=== PATIENT | female | born 1975 | race American Indian/Alaskan Native ===

== ENCOUNTER 2016-12-02 17:56 | Emergency (ER) | payer MEDICAID ==
[2016-12-02 18:01] VITALS: BMI 22.3
[2016-12-02] MEDS ORDERED: Multivitamin (MVI) 10 ML, Thiamine 100 MG, Folic Acid 1 MG in Sodium Chloride 0.9% 1,00... IV STA (19:42)
--- NOTE | 2016-12-02 19:44 | C.PDOC ---
History Of Present Illness 41 year old female is brought to the ED by EMS after stating she was hearing voices. Patient states she is hearing voices that tell her "to do bad things, like kill myself", this is the first time she is hearing these kind of voices. She is uncooperative for questioning, needs to be aroused verbally and physically in order to answer. Patient states having heart failure but has never seen a lotus notes administrator before for her issue. She denies any other medical problems, drug use, ETOH use. Chief Complaint (Nursing): Psychiatric Evaluation History Per: Patient, EMS History/Exam Limitations: other (somnolent) Current Symptoms Are (Timing): Still Present Suicide/Self Injury Attempted (Context): None Modifying Factor(s): None Associated Symptoms: Suicidal Thoughts, Other (auditory hallucinations) Recent travel outside of the [place]: No Additional History Per: EMS Past Medical History Reviewed: Historical Data, Nursing Documentation, Vital Signs Vital Signs: Last Vital Signs Temp 98 F 12/03/16 06:47 Pulse 80 12/03/16 06:47 Resp 20 12/03/16 06:47 BP 132/80 12/03/16 06:47 Pulse Ox 97 12/03/16 06:47 - Medical History PMH: Asthma Surgical History: No Surg Hx Family History: States: Unknown Family Hx - Social History Hx Alcohol Use: No Hx Substance Use: Yes Review Of Systems Constitutional: Positive for: Other (bad hygiene). Negative for: Fever, Chills Cardiovascular: Negative for: Chest Pain, Light Headedness Respiratory: Negative for: Cough Gastrointestinal: Negative for: Nausea, Vomiting Neurological: Negative for: Weakness, Numbness Psych: Positive for: Suicidal ideation Physical Exam - Physical Exam Appears: Other (Somnolent, overall poor hygiene, slurred speech) Skin: Normal Color, Warm, Dry, No Ecchymosis Head: No Atraumatic, Normacephalic Eye(s): bilateral: Other (Cloudy sclera) Nose: Normal, No Discharge Neck: Normal, Supple Chest: Symmetrical, No Deformity, No Tenderness Cardiovascular: Rhythm Regular, No Friction Rub, No Murmur Respiratory: Normal Breath Sounds, No Rales, No Rhonchi, No Wheezing Gastrointestinal/Abdominal: Normal Exam, Soft, No Tenderness Back: Normal Inspection Extremity: Normal ROM, Capillary Refill (less than 2 seconds), No Deformity Pulses: Left Radial: Normal, Right Radial: Normal, Left Dorsalis Pedis: Normal, Right Dorsalis Pedis: Normal Neurological/Psych: No Oriented x3 (Oriented to place, person,) Disoriented To: Place ED Course And Treatment - Laboratory Results Result Diagrams: 12/02/16 21:03 12/02/16 21:03 ECG: Interpreted By Me ECG Rhythm: Sinus Rhythm, Nonspecific Changes ECG Interpretation: Normal Interpretation Of ECG: nsr at 83 BPM,no acute STTW changes,no ectopy. Rate From EC O2 Sat by Pulse Oximetry: 100 (On RA) Pulse Ox Interpretation: Normal Medical Decision Making Medical Decision Making: Impression: 41 y/o female brought by EMS after stating she is hearing voices. Plan: * EKG ordered * UA ordered * Blood work Ordered * IV fluids administered Patient having auditory hallucinations. Medically cleared needs to be seen by crisis. Disposition - Disposition Referrals: [facility] [Outside] Disposition: HOME/ ROUTINE Disposition Time: 06:41 Condition: FAIR Instructions: Medical Clearance for Psychiatric Care (ED) Forms: [employer] (Russian) - Clinical Impression Clinical Impression: Cocaine abuse - Scribe Statement The provider has reviewed the documentation as recorded by the Scribe Francisco Javier Justice All medical record entries made by the Scribe were at my direction and personally dictated by me. I have reviewed the chart and agree that the record accurately reflects my personal performance of the history, physical exam, medical decision making, and the department course for this patient. I have also personally directed, reviewed, and agree with the discharge instructions and disposition.
[2016-12-02 20:15] LABS: RBC URINE 4 /hpf (0-3); URINE BACTERIA OCC (<OCC); URINE BILIRUBIN NEGATIVE (NEGATIVE); URINE BLOOD 1+ (NEGATIVE); URINE COLOR Yellow (YELLOW); URINE GLUCOSE (UA) NORMAL (Normal); URINE KETONE NEGATIVE (NEGATIVE); URINE LEUKOCYTE ESTERASE 1+ Leu/uL (Negative); URINE PROTEIN NEGATIVE (NEGATIVE); WBC URINE 8 /hpf (0-5)
[2016-12-02] MEDS ORDERED: Multivitamin (MVI) 10 ML, Thiamine 100 MG, Folic Acid 1 MG in Dextrose 5% In Water 1,00... IV STA (20:41)
[2016-12-02] MEDS ORDERED: Multivitamin (MVI) 10 ML, Thiamine 100 MG, Folic Acid 1 MG in Sodium Chloride 0.9% 1,00... IV ONE (21:13)
[2016-12-02 21:17] LABS: BASO % 0.7 % (0.0-2.0); EOS # 0.2 K/uL (0.0-0.7); EOS % 3.6 % (0.0-4.0); HEMATOCRIT 28.5 % (34.0-47.0); LYMPH # 2.3 K/uL (1.0-4.3); LYMPH % 38.2 % (20.0-40.0); MEAN CELL VOLUME 72.8 fL (81.0-99.0); MEAN CORPUSCULAR HEMOGLOBIN 22.7 pg (27.0-31.0); MEAN CORPUSCULAR HGB CONC 31.1 g/dL (33.0-37.0); MEAN PLATELET VOLUME 8.2 fL (7.2-11.7); MONO # 0.5 K/uL (0.0-0.8); MONO % 8.7 % (0.0-10.0); NRBC % 0.1 % (0.0-2.0); RED CELL DISTRIBUTION WIDTH 18.6 % (11.5-14.5); WHITE BLOOD COUNT 5.9 K/uL (4.8-10.8)
[2016-12-02 21:25] LABS: CHLORIDE 102 mmol/L (98-107); POTASSIUM 4.3 mmol/L (3.6-5.2); SODIUM 134 mmol/L (132-148)
[2016-12-02 21:27] LABS: GFR AFRICAN-AMERICAN > 60
[2016-12-02 21:28] LABS: ALB/GLOB RATIO 1.3 (1.0-2.1); ALKALINE PHOSPHATASE 95 U/L (38-126); ALT/SGPT 64 U/L (9-52); AST/SGOT 33 U/L (14-36); BILIRUBIN,TOTAL 0.3 mg/dL (0.2-1.3); BLOOD UREA NITROGEN 11 mg/dL (7-17); CALCIUM 8.3 mg/dl (8.6-10.4); CARBON DIOXIDE 25 mmol/L (22-30); GLUCOSE,RANDOM 81 mg/dL (65-105)
[2016-12-02 21:29] LABS: ALCOHOL SERUM < 10 mg/dl (0-10)
[2016-12-03 06:48] VITALS: BP 132/80; PULSE 80; RESP 20; TEMP 98
[2016-12-03 07:16] VITALS: O2SAT 100
== END 2016-12-03 06:47 | disposition home or self-care (01) ==
LOC: C.ER 17:56
DX: F14.10 Cocaine abuse, uncomplicated (principal)
CPT/HCPCS: 80053; 80320; 80324; 80329; 80345; 80346; 80349; 80353; 80358; 80361; 81001; 83992; 84703; 85025; 96374; 99284; J3411; J7040

== ENCOUNTER 2016-12-03 10:54 | Inpatient (IN) | payer MEDICAID ==
[2016-12-03 10:55] VITALS: BMI 22.3
[2016-12-03 12:03] LABS: BASO % 0.3 % (0.0-2.0); EOS # 0.1 K/uL (0.0-0.7); LYMPH # 1.5 K/uL (1.0-4.3); MEAN CORPUSCULAR HEMOGLOBIN 22.9 pg (27.0-31.0); MEAN CORPUSCULAR HGB CONC 31.4 g/dL (33.0-37.0); MEAN PLATELET VOLUME 8.3 fL (7.2-11.7); MONO # 0.5 K/uL (0.0-0.8); NRBC % 0.1 % (0.0-2.0); RED CELL DISTRIBUTION WIDTH 18.6 % (11.5-14.5); WHITE BLOOD COUNT 6.8 K/uL (4.8-10.8)
[2016-12-03 12:15] LABS: CHLORIDE 103 mmol/L (98-107); RBC URINE < 1 /hpf (0-3); URINE BILIRUBIN NEGATIVE (NEGATIVE); URINE BLOOD NEGATIVE (NEGATIVE); URINE COLOR Yellow (YELLOW); URINE GLUCOSE (UA) NORMAL (Normal); URINE KETONE NEGATIVE (NEGATIVE); URINE LEUKOCYTE ESTERASE NEG Leu/uL (Negative); URINE PROTEIN NEGATIVE (NEGATIVE); WBC URINE 2 /hpf (0-5)
[2016-12-03 12:16] LABS: POTASSIUM 3.9 mmol/L (3.6-5.2); SODIUM 139 mmol/L (132-148)
[2016-12-03 12:19] LABS: ALKALINE PHOSPHATASE 86 U/L (38-126); ALT/SGPT 69 U/L (9-52); AST/SGOT 33 U/L (14-36); BILIRUBIN,TOTAL 0.4 mg/dL (0.2-1.3); BLOOD UREA NITROGEN 12 mg/dL (7-17); CARBON DIOXIDE 27 mmol/L (22-30); GFR AFRICAN-AMERICAN > 60; GLUCOSE,RANDOM 67 mg/dL (65-105); TOTAL PROTEIN 7.6 g/dL (6.3-8.3)
[2016-12-03 12:20] LABS: ALCOHOL SERUM < 10 mg/dl (0-10); CALCIUM 8.9 mg/dl (8.6-10.4)
--- NOTE | 2016-12-03 13:45 | C.PDOC ---
History Of Present Illness 41 year old female brought to ED by EMS for psychiatric evaluation. As per EMS, patient has past medical history of bipolar disorder and schizophrenia. Patient was seen overnight for similar reason, and was discharged home. Records reviewed, does not appear to have been evaluated by crisis. Patient is not answering any questions at this time. Time Seen by Provider: 12/03/16 11:10 Chief Complaint (Nursing): Psychiatric Evaluation History Per: EMS History/Exam Limitations: other (refusing to answer questions) Onset/Duration Of Symptoms: Gradual Current Symptoms Are (Timing): Still Present Suicide/Self Injury Attempted (Context): None Additional History Per: EMS Past Medical History Reviewed: Historical Data, Nursing Documentation, Vital Signs Vital Signs: Last Vital Signs Temp 97.8 F 12/04/16 07:52 Pulse 95 H 12/04/16 07:52 Resp 20 12/04/16 07:52 BP 129/72 12/04/16 07:52 Pulse Ox 100 12/05/16 01:06 - Medical History PMH: Asthma, Bipolar Disorder, Schizophrenia Family History: States: No Known Family Hx - Social History Hx Alcohol Use: No Hx Substance Use: Yes - Immunization History Hx Tetanus Toxoid Vaccination: No Hx Influenza Vaccination: No Hx Pneumococcal Vaccination: No Review Of Systems Review Of Systems: ROS cannot be obtained secondary to pt's inabilty to answer questions. (Pt not answering any questions at this time) Physical Exam - Physical Exam Appears: Non-toxic, No Acute Distress, Other (bizarre affect) Skin: Normal Color, Warm, Dry Head: Atraumatic, Normacephalic Eye(s): bilateral: Normal Inspection Oral Mucosa: Moist Cardiovascular: Rhythm Regular, No Murmur Respiratory: Normal Breath Sounds, No Rales, No Rhonchi, No Wheezing Gastrointestinal/Abdominal: Normal Exam, Bowel Sounds, Soft, No Tenderness Extremity: Normal ROM Extremity: Bilateral: Atraumatic, Normal Color And Temperature, Normal ROM Neurological/Psych: Oriented x3 Gait: Steady ED Course And Treatment - Laboratory Results Result Diagrams: 12/03/16 11:57 12/03/16 11:57 O2 Sat by Pulse Oximetry: 100 (RA) Pulse Ox Interpretation: Normal Progress Note: Blood work, UA, UDS ordered and reviewed. 3:00pm- Patient medically cleared. 3:15pm- Patient accepted by Dr. Begum for psychiatric admission. Disposition - Disposition Disposition: HOSPITALIZED Disposition Time: 15:19 Condition: STABLE - Clinical Impression Clinical Impression: Schizophrenia - Scribe Statement The provider has reviewed the documentation as recorded by the Scribe Max Sanchez All medical record entries made by the Scribe were at my direction and personally dictated by me. I have reviewed the chart and agree that the record accurately reflects my personal performance of the history, physical exam, medical decision making, and the department course for this patient. I have also personally directed, reviewed, and agree with the discharge instructions and disposition. Decision To Admit - Pt Status Changed To: Hospital Disposition Of: Inpatient - Admit Certification Admit to Inpatient:: After my assessment, the patient will require hospitalization for at least two midnights. This is because of the severity of symptoms shown, intensity of services needed, and/or the medical risk in this patient being treated as an outpatient. - InPatient: Physician Admission Certification: I certify that this patient requires 2 or more midnights of care for the following reason:: see notes - . Bed Request Type: Psychiatry Admitting Physician: Reina Begum Patient Diagnosis: Schizophrenia
--- NOTE | 2016-12-04 04:07 | PCM.BM ---
<Ronak Grajeda - Last Filed: 12/04/16 04:06> Treatment Plan Problems - Problems identified on initial assessmt Auditory Hallucination Date Initiated: 12/03/16 Time Initiated: 16:15 Assessment reference: NA Status: Active Treatment assets and liabiliti Patient Assests: ADL independent, physically healthy Patient Liabilities: poor support system, relationship conflicts, substance abuse (Crack cocaine) - Milieu Protocol Maintain good personal hygiene: daily Encourage regular showers, daily Remind patient to perform daily oral care Conduct patient checks and document Observation sheet: Q15 minutes Maintain personal safety: every shift Educate patient to report safety concerns to staff, every shift Monitor environment for contraband/sharps Medication safety: Monitor for expected outcome, potential side effects: every shift, Assess barriers to learning: every shift, Assess readiness for medication education: every shift <Rose Byrne - Last Filed: 12/05/16 13:25> Family Contact Family involvement: Famliy/SO not involved Family contact: Telephone contact initiated by staff - Goals for Treatment Patient goals for treatment: "I want to go to an outpatient program." Discharge/Continuing Care - Education Needs Education Needs: Patient Medication, Patient Coping Skills, Patient Placement options, Patient Community resources - Discharge Discharge Criteria: Tolerates medication w/o severe side effects, Reduction of target symptoms Discharge to:: [facility] - Treatment Team Participation Discussed with Family/SO: No Was Patient/Family/SO present at Treatment Team Meeting: Yes <Kalyan Aldridge - Last Filed: 12/05/16 16:34> - Diagnosis (1) Schizophrenia Status: Acute Interventions: Assess/adjust medications daily and/or as needed SEE patient on him individual basis 7x/week to assess status of hallucinations. Discuss risks, benefits, side effects and alternatives of medications. 12/05/16 16:33 (2) Cocaine use disorder, mild, abuse Status: Acute Interventions: Assess 7x/week regarding severity of withdrawal Educated regarding risks, benefits, side effects and alternatives of medications Used motivational interview for abstinence Used CBT for relapse prevention Medication management for withdrawal symptoms Encouraged medication assisted treatment 12/05/16 16:34
[2016-12-04] MEDS: Pantoprazole 20 mg EC Tab PO SCH ×2 (12:12→12:13)
[2016-12-04] MEDS: Alum-Mag Hydrox-Simethicone Susp (30 mL) PO PRN (13:39)
--- NOTE | 2016-12-04 19:08 | PCM.PSYCH ---
Initial Psychiatric Evaluation - Initial Psychiatric Evaluation Type of Admission: Voluntary Legal Status: Capacity Chief Complaint (in patient's own words): "I'm hearing voices" History of Present Illness and Precipitating Events: Time spend 35 minutes Pt is a 41 year old Black female with psychiatric diagnosis of Schizophrenia and cocaine use disorder was bib EMS for agitation. Pt was brought in on previous day with complaint of auditory hallucinations. Pt was discharged. Pt return back at the ER yesterday and reports history of schizophrenia to ER staff adding that she is manic. Pt reports hearing voices telling her to kill herself and other people. Pt appeared disorganized in ER and was keep on inquiring of food. Pt states she attempted to harm herself yesterday, "by taking a smashed tylenol with other drugs." However, currently she denied SI, HI, intent or plan. Pt denied VH, or paranoid delusions. Pt states she uses heroin and cocaine intra nasally. Pt states she last used " like an ounce two days ago." Pt states she does not have any medical issues. Pt is guarded and somewhat agitated. She states she is from [facility] but not from this area and unable to find her way back to her familiar area. Pt states she is transient sleeping from place to place. Pt states she has been hospitalized multiple times at [facility]. Pt stated that she was in PHP and many other opd clinic. She stated that she is not compliant with medication. Pt reports being diagnosed Bipolar at the age of 10. Pt states at the age of 13 she began hearing voices. Pt states that at the age of 28 she started being hospitalized inpatient psych. Pt denies knowledge of familial hx of mental health issues. Pt denies history of childhood abuse and neglect. Pt states she is employed at [employer]. Pt states she was being prescribed Haldol, and Cogentin. Pt not currently taking her medication. Current Medications: Active Medications Generic Name Dose Route Start Last Admin Trade Name Freq PRN Reason Stop Dose Admin Al Hydrox/Mg Hydrox/Simethicone 30 ml 12/04/16 12:13 12/04/16 13:39 Maalox Plus 30 Ml PO 30 ml TID PRN Administration Indigestion / Heartburn Benztropine Mesylate 2 mg 12/03/16 16:16 12/03/16 17:37 Cogentin PO 2 mg Q6 PRN Administration Extra Pyramidal Symptoms Docusate Sodium 100 mg 12/03/16 16:16 Colace PO DAILY PRN Constipation Haloperidol 5 mg 12/03/16 18:00 12/04/16 17:28 Haldol PO 5 mg BID MIGUELITO Administration Haloperidol Lactate 5 mg 12/03/16 16:16 Haldol IM Q8 PRN Moderate Agitation Hydroxyzine HCl 25 mg 12/03/16 16:16 Atarax PO Q6 PRN Anxiety Ibuprofen 400 mg 12/03/16 16:16 Motrin Tab PO Q6 PRN Pain, Mild (1-3) Lorazepam 2 mg 12/03/16 16:16 12/03/16 16:32 Ativan PO 2 mg Q8H PRN Administration Severe Agitation Pantoprazole Sodium 20 mg 12/04/16 11:00 12/04/16 12:13 Protonix Ec Tab PO Not Given DAILY MIGUELITO Past Psychiatric History - Past Psychiatric History Previous Treatment History: Inpatient Prior Psychiatric Treatment: several hospitalization [facility]: [facility], [facility] Duration: several days Nature of Treatment: med management History of Abuse: denied History of ETOH/Drug Use: Please see HPI History of Family Illness: denied Pertinent Medical Hx (Current Medical&Sleep Prob, Allergies): Allergies Allergy/AdvReac Type Severity Reaction Status Date / Time No Known Allergies Allergy Verified 12/03/16 11:27 No Known Home Med 12/02/16 Sickle cell anemia, GERD Review of Systems - Review of Systems Systems not reviewed;Unavailable: Acuity of Condition All systems: reviewed and no additional remarkable complaints except (except psych. please see HPI) Mental Status Examination - Personal Presentation Personal Presentation: Looks younger than stated age, Dressed inappropriate to season (wearing deep cut shirt,) - Affect Affect: Constricted - Motor Activity Motor Activity: Calm, Psychomotor Agitation - Reliability in Providing Information Reliability in Providing Information: Fair - Speech Speech: Disorganized - Mood Mood: Anxious - Formal Thought Process Formal Thought Process: Hallucinations (auditory) - Hallucinations/Delusions Delusions: Other (denied ) - Obsessions/Compulsions Obsessions: No Compulsions: No - Cognitive Functions Orientation: Person, Place, Situation, Time Sensorium: Alert Attention/Concentration: Attentive Abstract Thinking: [place] Estimate of Intelligence: Below average Judgement: Imparied, as evidence by: Poor judgement, Intact, as evidence by: Insight regarding need for hospitalization Memory: Recent intact, as evidence by: Ability to recall events of the day - Risk Risk: Suicidal, Diminished functioning - Strength & Assets Inventory Strength & Assets Inventory: Cooperative - Limitations Limitations: Living alone, Other (chronic mental illness, chronic substance abuse) DSM 5 DX - DSM 5 DSM 5 Diagnosis: Schizophrenia disorganized, subchronic with acute exacerbation Cocaine abuse - Recommended/Plan of Treatment Treatment Recommendations and Plan of Treatment: Start Haldol 5 mg po BID Start Cogentin 1 mg po HS Individual and group therapy Psychoeducation regarding medication compliance, s/e, risk, benefits. Pt verbalized understanding and agree with the treatment plan. Monitor vitals Projected ELOS: 5-7 days Prognosis: good with meds compliance Discharge Plan and Discharge Criteria: Recommend PHP and [facility] program at the time of d/c - Smoking Cessation Smoking Cessation Initiated: Yes
[2016-12-05 08:05] VITALS: O2SAT 99
[2016-12-05] MEDS: Pantoprazole 20 mg EC Tab PO SCH (09:46)
--- NOTE | 2016-12-05 16:37 | PCM.PYCHPN ---
Psychiatric Progress Note - Psychiatric Progress Note Patient seen today, length of contact: 15 minutes Patient Chief Complaint: I'm feeling better. Can I go home. Problems Identified/Issues Discussed: Patient seen. Chart reviewed. Case discussed with the staff. Issues related to illness and treatment were discussed with the patient. Reported compliant with treatment with no adverse affects. Tolerating treatment very well. Patient reported she is feeling much better and wants to go home. But during evaluation patient was very disorganized. Unable to understand simple things. Patient needs more time for stabilization. At the time of evaluation, patient was awake alert oriented 3, denied any suicidal or homicidal ideations. Appeared internally preoccupied. Medical Problems: Sickle cell anemia GERD Diagnostic Results: Reviewed DSM 5 Symptoms Update: Some improvement with treatment Medication Change: Yes (Dose of Ativan reduce to 1 mg every 8 when necessary) Medical Record Reviewed: Yes Mental Status Examination - Cognitive Function Orientation: Person, Place, Situation, Time Memory: Intact Attention: WNL Concentration: WNL Association: WNL Fund of Knowledge: WN Decription of patient's judgement and insights: Fair - Mood Mood: Depressed - Affect Affect: Flat - Speech Speech: Appropriate - Formal Thought Process Formal Thought Process: Paranoia - Suicidal Ideation Suicidal Ideation: No - Homicidal Ideation Homicidal Ideation: No Goal/Treatment Plan - Goal/Treatment Plan Need for Continued Stay: Remain at risks for inpatient hospitalization, Discharge may exacerbated symptoms, Severe functional impairment Progress Toward Problem(s) and Goals/Treatment Plan: Patient education Supportive therapy Dose of Ativan reduce to 1 mg by mouth every 8 when necessary Continue rest of the treatment as before Patient wants to go to [facility] for follow-up care. Patient reported she was going there before coming to this place. Estimated Date of D/C: 12/12/16 - Smoking Cessation Smoking Cessation Initiated: Yes
[2016-12-06] MEDS: Pantoprazole 20 mg EC Tab PO SCH ×2 (09:47)
--- NOTE | 2016-12-06 14:05 | PCM.PYCHPN ---
Psychiatric Progress Note - Psychiatric Progress Note Patient seen today, length of contact: 15 minutes Patient Chief Complaint: I'm feeling better. Problems Identified/Issues Discussed: Patient seen. Chart reviewed. Case discussed with the staff. Issues related to illness and treatment were discussed with the patient. Reported compliant with treatment with no adverse affects. Tolerating treatment very well. Patient reported she is feeling much better,eating better sleep and sleeping better. But during evaluation patient was still very disorganized. Unable to understand simple things. staff reported that patient was seen dancing and also finding for little things. Patient was found removing something from the [employer] and on the patient, when stopped started cursing. Patient needs more time for stabilization. At the time of evaluation, patient was awake alert oriented 3, denied any suicidal or homicidal ideations. Appeared internally preoccupied. Medical Problems: Sickle cell anemia GERD Diagnostic Results: Reviewed DSM 5 Symptoms Update: some improvement with treatment Medication Change: Yes (dose of haloperidol increased to 10 m) Medical Record Reviewed: Yes Mental Status Examination - Cognitive Function Orientation: Person, Place, Situation, Time Memory: Intact Attention: WNL Concentration: WNL Association: WN Fund of Knowledge: [facility] Decription of patient's judgement and insights: Fair - Mood Mood: Depressed - Affect Affect: Flat - Speech Speech: Appropriate - Formal Thought Process Formal Thought Process: Circumstantial - Suicidal Ideation Suicidal Ideation: No - Homicidal Ideation Homicidal Ideation: No Goal/Treatment Plan - Goal/Treatment Plan Need for Continued Stay: Remain at risks for inpatient hospitalization, Discharge may exacerbated symptoms, Severe functional impairment Progress Toward Problem(s) and Goals/Treatment Plan: Patient education Supportive therapy dose of haloperidolincreased to 10 mg twice a day continue rest of the treatment as before Patient wants to go to [facility] for follow-up care. Patient reported she was going there before coming to this place. Estimated Date of D/C: 12/12/16 - Smoking Cessation Smoking Cessation Initiated: Yes
[2016-12-07] MEDS: Pantoprazole 20 mg EC Tab PO SCH (10:16)
[2016-12-07 12:07] VITALS: RESP 20; TEMP 97.5
--- NOTE | 2016-12-07 12:27 | PCM.PYCHPN ---
Psychiatric Progress Note - Psychiatric Progress Note Patient seen today, length of contact: 15 minutes Patient Chief Complaint: I'm feeling better. I'm trying to behave. Problems Identified/Issues Discussed: Patient seen. Chart reviewed. Case discussed with the staff. Issues related to illness and treatment were discussed with the patient. Reported compliant with treatment with no adverse affects. Tolerating treatment very well. Patient reported feeling better. Staff reported that patient was removing food from other patient's trays and was argumentative. Confronted patient and patient reported that somebody told her that she can take from other people's trays. Education provided to patient. Patient reported that she will not do this again and will try to behave normally. Patient appeared little better in her response and behavior after increase the dose of Haldol to 10 mg twice a day. Patient needs more time for stabilization. At the time of evaluation, patient was awake alert oriented 3, denied any suicidal or homicidal ideations. Appeared internally preoccupied. Medical Problems: Sickle cell anemia GERD Diagnostic Results: Reviewed DSM 5 Symptoms Update: Some improvement with treatment Medication Change: No Medical Record Reviewed: Yes Mental Status Examination - Cognitive Function Orientation: Person, Place, Situation, Time Memory: Intact Attention: WNL Concentration: WNL Association: [facility] Fund of Knowledge: [facility] Decription of patient's judgement and insights: Fair - Mood Mood: Depressed - Affect Affect: Flat - Speech Speech: Appropriate - Formal Thought Process Formal Thought Process: Perservation - Suicidal Ideation Suicidal Ideation: No - Homicidal Ideation Homicidal Ideation: No Goal/Treatment Plan - Goal/Treatment Plan Need for Continued Stay: Remain at risks for inpatient hospitalization, Discharge may exacerbated symptoms, Severe functional impairment Progress Toward Problem(s) and Goals/Treatment Plan: Patient education Supportive therapy Continue treatment as before Patient wants to go to [facility] for follow-up care. Patient reported she was going there before coming to this place. Estimated Date of D/C: 12/12/16 - Smoking Cessation Smoking Cessation Initiated: Yes
[2016-12-07] MEDS: Alum-Mag Hydrox-Simethicone Susp (30 mL) PO PRN (15:01)
[2016-12-08] MEDS: Pantoprazole 20 mg EC Tab PO SCH ×2 (09:38→09:41)
--- NOTE | 2016-12-08 12:56 | PCM.PYCHPN ---
Psychiatric Progress Note - Psychiatric Progress Note Patient seen today, length of contact: 15 minutes Patient Chief Complaint: I'm feeling better. I'm trying to behave. Problems Identified/Issues Discussed: Patient seen. Chart reviewed. Case discussed with the staff. Issues related to illness and treatment were discussed with the patient. Reported compliant with treatment with no adverse affects. Tolerating treatment very well. Patient reported feeling better. Staff reported that patient was again agitated in the evening hours and was cursing the staff. Patient denied. Patient appeared little better in her response and behavior. Offered long-acting intramuscular injection of Haldol, patient refused. Education provided, still refused. Patient needs more time for stabilization. At the time of evaluation, patient was awake alert oriented 3, denied any suicidal or homicidal ideations. Appeared internally preoccupied. Medical Problems: Sickle cell anemia GERD Diagnostic Results: Reviewed DSM 5 Symptoms Update: Some improvement with treatment Medication Change: No Medical Record Reviewed: Yes Mental Status Examination - Cognitive Function Orientation: Person, Place, Situation, Time Memory: Intact Attention: WNL Concentration: WNL Association: WNL Fund of Knowledge: [facility] Decription of patient's judgement and insights: Fair - Mood Mood: Depressed - Affect Affect: Flat - Speech Speech: Appropriate - Formal Thought Process Formal Thought Process: Perservation - Suicidal Ideation Suicidal Ideation: No - Homicidal Ideation Homicidal Ideation: No Goal/Treatment Plan - Goal/Treatment Plan Need for Continued Stay: Remain at risks for inpatient hospitalization, Discharge may exacerbated symptoms, Severe functional impairment Progress Toward Problem(s) and Goals/Treatment Plan: Patient education Supportive therapy Continue treatment as before Patient wants to go to [facility] for follow-up care. Patient reported she was going there before coming to this place. Estimated Date of D/C: 12/12/16 - Smoking Cessation Smoking Cessation Initiated: No
[2016-12-08 16:13] VITALS: BP 153/87; PULSE 83
[2016-12-08] MEDS: Alum-Mag Hydrox-Simethicone Susp (30 mL) PO PRN (19:05)
[2016-12-09] MEDS: Alum-Mag Hydrox-Simethicone Susp (30 mL) PO PRN (08:22)
[2016-12-09] MEDS: Pantoprazole 20 mg EC Tab PO SCH (10:13)
--- NOTE | 2016-12-09 23:55 | PCM.PYCHDC ---
Mental Status Examination - Mental Status Examination Orientation: Person, Place, Situation, Time Memory: Intact Mood: Neutral Affect: Other (Appropriate) Speech: Appropriate Attention: WNL Concentration: WNL Association: WNL Fund of Knowledge: WNL Formal Thought Process: No Impairment Description of patient's judgement and insight: Fair Psychotic Thoughts and Behaviors: None Suicidal Ideation: No Current Homicidal Ideation?: No Discharge Summary - Discharge Note Reason for Hospitalization: Schizophrenia Cocaine use disorder Psychiatric History (includes Medical, Family, Personal Hx): med management Laboratory Data: Reviewed Consultations:: List each consultation separately and include: 1. Reason for request. 2. Findings. 3. Follow-up Summary of Hospital Course include:: 1. Description of specific treatment plan utilized for patients during their course of treatmen. 2. Summarize the time- course for resolution of acute symptoms and/or regressed behaviors. 3. Describe issues identified and worked on during hospitalization. 4. Describe medication utilized. 5. Describe medical problems identified and treated. 6. Reassessment of suicide risk Summary of Hospital Course: Pt is a 41 year old Black female with psychiatric diagnosis of Schizophrenia and cocaine use disorder was bib EMS for agitation. Pt was brought in on previous day with complaint of auditory hallucinations. Pt was discharged. Pt return back at the ER yesterday and reports history of schizophrenia to ER staff adding that she is manic. Pt reports hearing voices telling her to kill herself and other people. Pt appeared disorganized in ER and was keep on inquiring of food. Pt states she attempted to harm herself yesterday, "by taking a smashed tylenol with other drugs." However, currently she denied SI, HI, intent or plan. Pt denied VH, or paranoid delusions. Pt states she uses heroin and cocaine intra nasally. Pt states she last used " like an ounce two days ago." Pt states she does not have any medical issues. Pt is guarded and somewhat agitated. She states she is from [facility] but not from this area and unable to find her way back to her familiar area. Pt states she is transient sleeping from place to place. Pt states she has been hospitalized multiple times at [facility]. Pt stated that she was in [facility] and many other opd clinic. She stated that she is not compliant with medication. Pt reports being diagnosed Bipolar at the age of 10. Pt states at the age of 13 she began hearing voices. Pt states that at the age of 28 she started being hospitalized inpatient psych. Pt denies knowledge of familial hx of mental health issues. Pt denies history of childhood abuse and neglect. Pt states she is employed at [employer]. Pt states she was being prescribed Haldol, and Cogentin. Pt not currently taking her medication. During her stay in the hospital, patient was treated with haloperidol which was increased gradually. She was also treated with other when necessary medications. Patient was attending groups and other activities on the unit. During her stay on the unit patient had some behavior issues required frequent redirection. With the above interventions patient started feeling better. Today patient was stable and ready for discharge. At the time of evaluation and discharge, patient was awake alert oriented 3, had no delusions, no suicidal ideations or homicidal ideations, no auditory or visual hallucinations. Patient was discharged in stable condition. - Diagnosis (1) Schizophrenia Status: Acute (2) Cocaine use disorder, mild, abuse Status: Acute - Final Diagnosis (DSM 5) Condition upon Discharge: STABLE Disposition: HOME/ ROUTINE Follow-up Treatment Plan: Patient will go to [facility] for follow-up care. Patient reported she was going there before coming to this place. Prescriptions/Medication Reconciliation: Benztropine [Cogentin] 2 mg PO HS PRN #30 tab PRN Reason: Extra Pyramidal Symptoms Haloperidol [Haldol] 10 mg PO BID #60 tab Pantoprazole [Protonix EC Tab] 20 mg PO DAILY #30 ect - Smoking Cessation Smoking Cessation Medication prescribed: No - Antipsychotic Medications Pt discharged on 2 or more routine antipsychotic medications: No
== END 2016-12-09 12:10 | disposition home or self-care (01) | DRG 430 ==
LOC: C.ER 10:54 → C.9E 15:19 → C.5E 15:51
PROVIDERS: ADMIT Psychiatry & Neurology Psychiatry; ATTEND Psychiatry & Neurology Psychiatry
PROC: GZ56ZZZ Individual Psychotherapy, Supportive (ICD-10-PCS; principal; 2016-12-03)
DX: F20.9 Schizophrenia, unspecified (principal); D57.1 Sickle-cell disease without crisis; F14.10 Cocaine abuse, uncomplicated; J45.909 Unspecified asthma, uncomplicated; K21.9 Gastro-esophageal reflux disease without esophagitis

== ENCOUNTER 2018-05-15 03:41 | Inpatient (IN) | payer MEDICAID ==
[2018-05-15 03:42] VITALS: BMI 22.3
[2018-05-15 04:36] LABS: MEAN CORPUSCULAR HGB CONC 30.5 g/dL (33.0-37.0); MONO # 0.4 K/uL (0.0-0.8); WHITE BLOOD COUNT 6.8 K/uL (4.8-10.8)
[2018-05-15 04:53] LABS: ALB/GLOB RATIO 1.3 (1.0-2.1); ALBUMIN 4.2 g/dL (3.5-5.0); ALT/SGPT 31 U/L (9-52); AST/SGOT 32 U/L (14-36); BASO % 0.4 % (0.0-2.0); BLOOD UREA NITROGEN 14 mg/dL (7-17); CALCIUM 9.2 mg/dl (8.6-10.4); EOS % 0.1 % (0.0-4.0); GFR NON-AFRICAN AMERICAN > 60; HEMOGLOBIN 9.6 g/dL (11.0-16.0); LYMPH # 1.6 K/uL (1.0-4.3); LYMPH % 23.9 % (20.0-40.0); MEAN CORPUSCULAR HEMOGLOBIN 21.7 pg (27.0-31.0); MEAN PLATELET VOLUME 8.1 fL (7.2-11.7); MONO % 5.8 % (0.0-10.0); NEUT # 4.8 K/uL (1.8-7.0); NEUT % 69.8 % (50.0-75.0); NRBC % 0.2 % (0.0-2.0); RBC 4.41 Mil/uL (3.80-5.20); RED CELL DISTRIBUTION WIDTH 19.5 % (11.5-14.5)
[2018-05-15 05:03] LABS: HCG,QUALITATIVE URINE NEGATIVE (NEGATIVE); SQUAMOUS EPITHIAL 1 /hpf (0-5); URINE BACTERIA RARE (<OCC); URINE BILIRUBIN NEGATIVE (NEGATIVE); URINE BLOOD NEGATIVE (NEGATIVE); URINE CLARITY Hazy (Clear); URINE COLOR Yellow (YELLOW); URINE GLUCOSE (UA) NORMAL (Normal); URINE LEUKOCYTE ESTERASE NEG Leu/uL (Negative); URINE PROTEIN NEGATIVE (NEGATIVE); URINE UROBILINOGEN NORMAL mg/dL (0.2-1.0)
[2018-05-15 05:13] LABS: BARBITURATES, UR NEGATIVE (NEGATIVE); BENZODIAZEPINES, UR NEGATIVE (NEGATIVE); OPIATES, UR NEGATIVE (NEGATIVE); PHENCYCLIDINE, UR NEGATIVE (NEGATIVE)
--- NOTE | 2018-05-15 05:27 | C.PDOC ---
History Of Present Illness 42 year old female found outside of [facility], admits to doing pcp. Patient states she is hearing voices, initially she said the voices were just noise but when asked if the voices are telling her to hurt herself she said yes, has not made any attempts to hurt herself. She takes risperdol but does not have a psychiatrist, notes she gets it from hospital visits. Denies any medical complaints at this time. Time Seen by Provider: 05/15/18 04:25 Chief Complaint (Nursing): Psychiatric Evaluation History Per: Patient History/Exam Limitations: no limitations Onset/Duration Of Symptoms: Hrs Current Symptoms Are (Timing): Still Present Suicide/Self Injury Attempted (Context): None Modifying Factor(s): Other (PCP) Associated Symptoms: Other (Hearing voices) Recent travel outside of the [place]: No Past Medical History Reviewed: Historical Data, Nursing Documentation, Vital Signs Vital Signs: Last Vital Signs Temp 97.4 F L 05/15/18 03:50 Pulse 85 05/15/18 03:50 Resp 16 05/15/18 03:50 BP 132/78 05/15/18 03:50 Pulse Ox 95 05/15/18 03:50 - Medical History PMH: Asthma, Bipolar Disorder, Schizophrenia Denies: Diabetes, Hepatitis, HIV, HTN, Seizures, Sexually Transmitted Disease - [facility] Procedures INDIVIDUAL PSYCHOTHERAPY, SUPPORTIVE (12/03/16) Family History: States: Unknown Family Hx - Social History Hx Alcohol Use: No Hx Substance Use: Yes - Immunization History Hx Tetanus Toxoid Vaccination: No Hx Influenza Vaccination: No Hx Pneumococcal Vaccination: No Review Of Systems Constitutional: Negative for: Fever, Chills Cardiovascular: Negative for: Chest Pain, Palpitations Respiratory: Negative for: Cough, Shortness of Breath Gastrointestinal: Negative for: Nausea, Vomiting Neurological: Negative for: Seizures Psych: Positive for: Psychosis, Other (Hearing voices) Physical Exam - Physical Exam Appears: Well, Non-toxic, No Acute Distress Skin: Normal Color Head: Atraumatic, Normacephalic Nose: No Epistaxis Neck: Normal, Normal ROM Chest: Symmetrical Respiratory: No Accessory Muscle Use Extremity: Bilateral: Atraumatic Neurological/Psych: Other (alert, follows commands, responds to select questions) Gait: Steady Additional Physical Exam Comments: Declined to be physically examined but appears to be in no acute distress, has no outward evidence of trauma, seen ambulating with steady gait. ED Course And Treatment - Laboratory Results Result Diagrams: 05/15/18 04:26 05/15/18 04:26 Lab Results: Total Bilirubin 0.4 mg/dL (0.2-1.3) 05/15/18 04:26 AST 32 U/L (14-36) 05/15/18 04:26 ALT 31 U/L (9-52) 05/15/18 04:26 Alkaline Phosphatase 77 U/L (38-126) 05/15/18 04:26 Total Protein 7.3 g/dL (6.3-8.3) 05/15/18 04:26 Albumin 4.2 g/dL (3.5-5.0) 05/15/18 04:26 Globulin 3.1 gm/dL (2.2-3.9) 05/15/18 04:26 Albumin/Globulin Ratio 1.3 (1.0-2.1) 05/15/18 04:26 Urine Color Yellow (YELLOW) 05/15/18 04:53 Urine Clarity Hazy (Clear) 05/15/18 04:53 Urine pH 5.0 (5.0-8.0) 05/15/18 04:53 Ur Specific [place] 1.026 (1.003-1.030) 05/15/18 04:53 Urine Protein Negative mg/dL (NEGATIVE) 05/15/18 04:53 Urine Glucose (UA) Normal mg/dL (Normal) 05/15/18 04:53 Urine Ketones 1+ mg/dL (NEGATIVE) H 05/15/18 04:53 Urine Blood Negative (NEGATIVE) 05/15/18 04:53 Urine Nitrate Negative (NEGATIVE) 05/15/18 04:53 Urine Bilirubin Negative (NEGATIVE) 05/15/18 04:53 Urine Urobilinogen Normal mg/dL (0.2-1.0) 05/15/18 04:53 Ur Leukocyte Esterase Neg Karen/uL (Negative) 05/15/18 04:53 Urine WBC (Auto) 1 /hpf (0-5) 05/15/18 04:53 Urine RBC (Auto) 1 /hpf (0-3) 05/15/18 04:53 Ur Squamous Epith Cells 1 /hpf (0-5) 05/15/18 04:53 Urine Bacteria Rare (<OCC) 05/15/18 04:53 Urine HCG, Qual Negative (NEGATIVE) 05/15/18 04:53 Urine HCG, Qual Negative (NEGATIVE) 05/15/18 04:53 O2 Sat by Pulse Oximetry: 95 (Room air) Pulse Ox Interpretation: Normal Medical Decision Making Medical Decision Making: Labs ordered. Pending crisis eval. Disposition - Disposition Disposition Time: 07:13 Condition: STABLE Forms: LastRoom (Kinyarwanda) - Clinical Impression Clinical Impression: Schizophrenia - PA / LAW OFFICE MANAGER / Resident Statement MD/DO has reviewed & agrees with the documentation as recorded. - Scribe Statement The provider has reviewed the documentation as recorded by the Scribe Brandon Paige All medical record entries made by the Scribe were at my direction and personally dictated by me. I have reviewed the chart and agree that the record accurately reflects my personal performance of the history, physical exam, medical decision making, and the department course for this patient. I have also personally directed, reviewed, and agree with the discharge instructions and disposition.
[2018-05-15 07:15] VITALS: RESP 18
[2018-05-15 11:35] VITALS: TEMP 97.1; O2SAT 97
--- NOTE | 2018-05-15 12:21 | PCM.BM ---
<Eagle Vasquezhanie - Last Filed: 05/15/18 12:19> Treatment Plan Problems - Problems identified on initial assessmt Agitated Date Initiated: 05/15/18 Time Initiated: 12:20 Assessment reference: NA Status: Active Alteration in emotional status Date Initiated: 05/15/18 Time Initiated: 12:21 Assessment reference: NA Status: Active Treatment assets and liabiliti Patient Assests: negotiates basic needs, self-reliant, ADL independent, physically healthy Patient Liabilities: live alone, financial problems, poor support system, relationship conflicts - Milieu Protocol Maintain good personal hygiene: daily Encourage regular showers, daily Remind patient to perform daily oral care, daily Assist patient to perform ADL's Conduct patient checks and document Observation sheet: Q15 minutes Maintain personal safety: every shift Educate patient to report safety concerns to staff, every shift Monitor environment for contraband/sharps Medication safety: Monitor for expected outcome, potential side effects: every shift, Assess barriers to learning: every shift, Assess readiness for medication education: every shift <Hugh Davis - Last Filed: 05/16/18 10:50> - Diagnosis (1) Schizophrenia Status: Chronic Interventions: 05/16/18 10:50 * Assess/adjust medications daily and /or as needed * See patient on an individual basis 7x/week to assess status of hallucinations * Discuss risks, benefits, side effects and alternatives of medications * (2) Cocaine abuse Status: Acute Interventions: 05/16/18 10:50 * Assess 7x/week regarding severity of withdrawal * Educate regarding risks, benefits, side effects and alternatives of medications * Use Motivational Interviewing for abstinence * Use CBT for relapse prevention * Medication management for withdrawal symptoms * Encourage medication assisted treatment * <Rose Byrne - Last Filed: 05/16/18 12:12> Family Contact Family involvement: Famliy/SO not involved - Goals for Treatment Patient goals for treatment: "I want to go back to my outpatient program." Discharge/Continuing Care - Education Needs Education Needs: Patient Medication, Patient Coping Skills, Patient Placement options, Patient Community resources - Discharge Discharge Criteria: Tolerates medication w/o severe side effects, Reduction of target symptoms Discharge to:: [facility] - Treatment Team Participation Discussed with Family/SO: No Was Patient/Family/SO present at Treatment Team Meeting: Yes
--- NOTE | 2018-05-15 12:30 | PCM.PSYCH ---
Initial Psychiatric Evaluation - Initial Psychiatric Evaluation Type of Admission: Voluntary Legal Status: Capacity Chief Complaint (in patient's own words): I am feeling very anxious.' History of Present Illness and Precipitating Events: Patient is a 42 years old -[place] female, who was escorted to the ED in a disorganized and internally preoccupied behavior. As per the collateral, patient has a long history of schizophrenia. She has history of multiple inpatient psychiatric hospitalizations she was last discharged from [facility]. As per the hospital chart, she has history of attending mental health outpatient clinic at [facility]. Patient appeared disorganized and internally preoccupied throughout the interview. She remained irritable, agitated and noncooperative. She was internally preoccupied and appears to be responding to internal stimuli. As per the ED report, patient was found in a disorganized state at the [employer] in [facility]. She continued to have flight of ideas and loose associations. She remained a poor historian. She was superficially cooperative but guarded about the details. She remained guarded about auditory and visual hallucinations. She remained guarded about substances, however urine toxicology was positive for cocaine and drinking. She denied any suicidal or any homicidal ideation. Past medical history None reported Past Psychiatric History - Past Psychiatric History Previous Treatment History: Inpatient Pertinent Medical Hx (Current Medical&Sleep Prob, Allergies): Allergies Allergy/AdvReac Type Severity Reaction Status Date / Time No Known Allergies Allergy Verified 12/07/17 08:49 OLANZapine [ZyPREXA] 10 mg PO AMHS #30 tab 12/13/17 clonazePAM [Klonopin] 0.5 mg PO BID #30 tab 12/13/17 traZODone [Desyrel] 50 mg PO HS PRN #14 tab 12/13/17 Review of Systems - Review of Systems All systems: reviewed and no additional remarkable complaints except - Psychiatric Psychiatric: Anxiety, Auditory Hallucinations, Irritability, Mood Swings, Paranoia Mental Status Examination - Personal Presentation Personal Presentation: Looks stated age - Affect Affect: Broad - Motor Activity Motor Activity: Psychomotor Agitation - Reliability in Providing Information Reliability in Providing Information: Poor, due to alteration in thoughts, Poor, due to altered mood - Speech Speech: Disorganized - Mood Mood: Anxious - Formal Thought Process Formal Thought Process: Hallucinations, Delusions, Paranoia, Loosening of associations, Flight of ideas - Hallucinations/Delusions Hallucinations: Visual, Auditory Delusions: Persecution - Obsessions/Compulsions Obsessions: No Compulsions: No - Cognitive Functions Orientation: Person, Place, Situation, Time Sensorium: Alert Attention/Concentration: Attentive Abstract Thinking: [place] Estimate of Intelligence: Below average Judgement: Imparied, as evidence by: Poor judgement, Imparied, as evidence by: Lack of insight into illness - Risk Risk: Diminished functioning - Limitations Limitations: Living alone DSM 5 DX - DSM 5 DSM 5 Diagnosis: Schizoaffective disorder bipolar type Cocaine abuse disorder severe Alcohol use disorder moderate - Recommended/Plan of Treatment Treatment Recommendations and Plan of Treatment: Schizoaffective disorder bipolar type Cocaine abuse disorder severe Alcohol use disorder moderate CBT Supportive therapy and group therapy and milieu therapy Psychoeducation Depakote as a mood stabilizer Discontinue Haldol for psychosis Start Zyprexa for psychosis Klonopin for anxiety Trazodone for insomnia - Smoking Cessation Smoking Cessation Initiated: No
[2018-05-15] MEDS: Divalproex 500 mg DR Tab PO SCH ×2 (13:26→18:40)
[2018-05-16] MEDS: Divalproex 500 mg DR Tab PO SCH ×2 (09:20→17:11)
--- NOTE | 2018-05-16 10:51 | PCM.PYCHPN ---
Psychiatric Progress Note - Psychiatric Progress Note Patient seen today, length of contact: 15 min Patient Chief Complaint: I am feeling very anxious.' Problems Identified/Issues Discussed: Patient seen and evaluated, chart reviewed and discussed with the nurse. Patient remained disorganized and internally preoccupied. She appeared suspicious, paranoid and psychotic. She remained aggressive and agitated. She appeared to have severe thought blocking. However started taking medication and denies any side effects. Supportive therapy and psychoeducation were given. Medication Change: Yes Medical Record Reviewed: Yes Mental Status Examination - Cognitive Function Orientation: Person, Place, Situation, Time Memory: Intact Attention: WNL Concentration: Poor Association: Loose Fund of Knowledge: Poor - Mood Mood: Anxious - Affect Affect: Broad - Speech Speech: Pressured - Formal Thought Process Formal Thought Process: Hallucinations, Delusions, Paranoia, Loosening of associations, Flight of ideas - Suicidal Ideation Suicidal Ideation: No - Homicidal Ideation Homicidal Ideation: No Goal/Treatment Plan - Goal/Treatment Plan Need for Continued Stay: Remain at risks for inpatient hospitalization Progress Toward Problem(s) and Goals/Treatment Plan: Schizoaffective disorder bipolar type Cocaine abuse disorder severe Alcohol use disorder moderate -CBT -Supportive therapy and group therapy and milieu therapy -Psychoeducation -Depakote as a mood stabilizer -Discontinue Haldol for psychosis -Zyprexa for psychosis -Klonopin for anxiety -Trazodone for insomnia
[2018-05-17] MEDS: guaiFENesin 200 mg/10 ml Syrup UD PO PRN (00:52)
[2018-05-17] MEDS: Divalproex 500 mg DR Tab PO SCH ×2 (09:41→17:17)
[2018-05-18] MEDS: Divalproex 500 mg DR Tab PO SCH ×2 (09:01→17:33)
[2018-05-19] MEDS: Divalproex 500 mg DR Tab PO SCH ×2 (09:35→17:17)
[2018-05-19] MEDS ORDERED: Pneumococcal 23-Valent Vaccine IM ONE (10:00)
--- NOTE | 2018-05-19 11:39 | PCM.PYCHPN ---
Psychiatric Progress Note - Psychiatric Progress Note Patient seen today, length of contact: 15 min Patient Chief Complaint: I am feeling little better Problems Identified/Issues Discussed: Patient seen and evaluated, chart reviewed and discussed with the nurse. Patient remained disorganized and internally preoccupied. She appeared suspicious, paranoid and psychotic. She was partially mute and has severe thought blocking. She remained superficially cooperative and guarded about the details. However denied any suicidal ideation or homicidal ideation. She remained calm and cooperative and taking medication and denies any side effects. Supportive therapy and psychoeducation were given. Medication Change: Yes Medical Record Reviewed: Yes Mental Status Examination - Cognitive Function Orientation: Person, Place, Situation, Time Memory: Intact Attention: WNL Concentration: Poor Association: Loose Fund of Knowledge: Poor - Mood Mood: Anxious - Affect Affect: Broad - Speech Speech: Pressured - Formal Thought Process Formal Thought Process: Delusions, Paranoia, Loosening of associations, Flight of ideas - Suicidal Ideation Suicidal Ideation: No - Homicidal Ideation Homicidal Ideation: No Goal/Treatment Plan - Goal/Treatment Plan Need for Continued Stay: Remain at risks for inpatient hospitalization Progress Toward Problem(s) and Goals/Treatment Plan: Schizoaffective disorder bipolar type Cocaine abuse disorder severe Alcohol use disorder moderate -CBT -Supportive therapy and group therapy and milieu therapy -Psychoeducation -Depakote as a mood stabilizer -Zyprexa for psychosis -Klonopin for anxiety -Trazodone for insomnia
--- NOTE | 2018-05-19 11:39 | PCM.PYCHPN ---
Psychiatric Progress Note - Psychiatric Progress Note Patient seen today, length of contact: 15 min Patient Chief Complaint: I am feeling little better.' Problems Identified/Issues Discussed: Patient seen and evaluated, chart reviewed and discussed with the nurse. As per staff, patient remained calm and cooperative. She appears less disorganized and internally preoccupied than before. She reports improvement in her hallucinations and paranoia. She is taking taking medication and denies any side effects. Symptoms are improving gradually but she needs to stay longer for further stabilization Supportive therapy and psychoeducation were given. Medication Change: Yes Medical Record Reviewed: Yes Mental Status Examination - Cognitive Function Orientation: Person, Place, Situation, Time Memory: Intact Attention: WNL Concentration: Poor Association: Loose Fund of Knowledge: Poor - Mood Mood: Anxious - Affect Affect: Broad - Speech Speech: Pressured - Formal Thought Process Formal Thought Process: Delusions, Paranoia, Loosening of associations - Suicidal Ideation Suicidal Ideation: No - Homicidal Ideation Homicidal Ideation: No Goal/Treatment Plan - Goal/Treatment Plan Need for Continued Stay: Remain at risks for inpatient hospitalization Progress Toward Problem(s) and Goals/Treatment Plan: Schizoaffective disorder bipolar type Cocaine abuse disorder severe Alcohol use disorder moderate -CBT -Supportive therapy and group therapy and milieu therapy -Psychoeducation -Depakote as a mood stabilizer -Zyprexa for psychosis -Discontinue Klonopin for anxiety -Trazodone for insomnia
[2018-05-19] MEDS: guaiFENesin 200 mg/10 ml Syrup UD PO PRN (14:08)
[2018-05-19] MEDS: Aluminum Hydroxide/Magnesium Hydroxide Susp (30 mL) PO PRN (16:35)
[2018-05-20] MEDS: Divalproex 500 mg DR Tab PO SCH ×2 (09:30→17:28)
[2018-05-20 16:56] VITALS: BP 122/70; PULSE 116
[2018-05-21] MEDS: Divalproex 500 mg DR Tab PO SCH ×2 (09:56→17:34)
[2018-05-21] MEDS: guaiFENesin 200 mg/10 ml Syrup UD PO PRN (19:41)
[2018-05-21] MEDS: Aluminum Hydroxide/Magnesium Hydroxide Susp (30 mL) PO PRN (19:41)
[2018-05-22] MEDS: Divalproex 500 mg DR Tab PO SCH ×2 (10:02→17:25)
--- NOTE | 2018-05-22 13:43 | PCM.PYCHPN ---
Psychiatric Progress Note - Psychiatric Progress Note Patient seen today, length of contact: 15 min Patient Chief Complaint: I am feeling little better.' Problems Identified/Issues Discussed: Patient seen and evaluated, chart reviewed and discussed with the nurse. As per staff, patient remained calm and cooperative. She appears less disorganized and internally preoccupied than before. She reports improvement in her hallucinations and paranoia. She is taking taking medication and denies any side effects. Symptoms are improving gradually but she needs to stay longer for further stabilization Supportive therapy and psychoeducation were given. Medication Change: Yes Medical Record Reviewed: Yes Mental Status Examination - Cognitive Function Orientation: Person, Place, Situation, Time Memory: Intact Attention: WNL Concentration: WNL Association: Loose Fund of Knowledge: Poor - Mood Mood: Anxious - Affect Affect: Broad - Speech Speech: Pressured - Formal Thought Process Formal Thought Process: Paranoia, Loosening of associations - Suicidal Ideation Suicidal Ideation: No - Homicidal Ideation Homicidal Ideation: No Goal/Treatment Plan - Goal/Treatment Plan Need for Continued Stay: Remain at risks for inpatient hospitalization Progress Toward Problem(s) and Goals/Treatment Plan: Schizoaffective disorder bipolar type Cocaine abuse disorder severe Alcohol use disorder moderate -CBT -Supportive therapy and group therapy and milieu therapy -Psychoeducation -Depakote as a mood stabilizer -Zyprexa for psychosis -Discontinue Klonopin for anxiety -Trazodone for insomnia
--- NOTE | 2018-05-22 13:44 | PCM.PYCHPN ---
Psychiatric Progress Note - Psychiatric Progress Note Patient seen today, length of contact: 15 min Patient Chief Complaint: I am feeling little better.' Problems Identified/Issues Discussed: Patient seen and evaluated, chart reviewed and discussed with the nurse. She appears more disorganized and less paranoid. As per staff, patient remained calm and cooperative. She reports improvement in her hallucinations and paranoia. She is taking taking medication and denies any side effects. Symptoms are improving gradually but she needs to stay longer for further stabilization Supportive therapy and psychoeducation were given. Medication Change: Yes Medical Record Reviewed: Yes Mental Status Examination - Cognitive Function Orientation: Person, Place, Situation, Time Memory: Intact Attention: WNL Concentration: WNL Association: Loose Fund of Knowledge: WNL - Mood Mood: Anxious - Affect Affect: Broad - Speech Speech: Pressured - Formal Thought Process Formal Thought Process: Loosening of associations - Suicidal Ideation Suicidal Ideation: No - Homicidal Ideation Homicidal Ideation: No Goal/Treatment Plan - Goal/Treatment Plan Need for Continued Stay: Remain at risks for inpatient hospitalization Progress Toward Problem(s) and Goals/Treatment Plan: Schizoaffective disorder bipolar type Cocaine abuse disorder severe Alcohol use disorder moderate -CBT -Supportive therapy and group therapy and milieu therapy -Psychoeducation -Depakote as a mood stabilizer -Zyprexa for psychosis -Trazodone for insomnia
[2018-05-23] MEDS: Divalproex 500 mg DR Tab PO SCH (09:36)
--- NOTE | 2018-05-23 10:26 | PCM.PYCHDC ---
Mental Status Examination - Mental Status Examination Orientation: Person, Place, Situation, Time Memory: Intact Mood: Neutral Affect: Constricted Speech: Soft Attention: WNL Concentration: WNL Association: WNL Fund of Knowledge: WNL Formal Thought Process: No Impairment Description of patient's judgement and insight: good, fair Psychotic Thoughts and Behaviors: denies any AVH Suicidal Ideation: No Current Homicidal Ideation?: No Discharge Summary - Discharge Note Reason for Hospitalization: Patient is a 42 years old -Spanish female, who was escorted to the ED in a disorganized and internally preoccupied behavior. As per the collateral, patient has a long history of schizophrenia. She has history of multiple inpatient psychiatric hospitalizations she was last discharged from [facility]. As per the hospital chart, she has history of attending mental health outpatient clinic at [facility]. Patient appeared disorganized and internally preoccupied throughout the interview. She remained irritable, agitated and noncooperative. She was internally preoccupied and appears to be responding to internal stimuli. As per the ED report, patient was found in a disorganized state at the [facility] in [facility]. She continued to have flight of ideas and loose associations. She remained a poor historian. She was superficially cooperative but guarded about the details. She remained guarded about auditory and visual hallucinations. She remained guarded about substances, however urine toxicology was positive for cocaine and drinking. She denied any suicidal or any homicidal ideation. Consultations:: List each consultation separately and include: 1. Reason for request. 2. Findings. 3. Follow-up Summary of Hospital Course include:: 1. Description of specific treatment plan utilized for patients during their course of treatmen. 2. Summarize the time- course for resolution of acute symptoms and/or regressed behaviors. 3. Describe issues identified and worked on during hospitalization. 4. Describe medication utilized. 5. Describe medical problems identified and treated. 6. Reassessment of suicide risk Summary of Hospital Course: Patient is a 42 years old -Spanish female, who was escorted to the ED in a disorganized and internally preoccupied behavior. As per the collateral, patient has a long history of schizophrenia. She has history of multiple inpatient psychiatric hospitalizations she was last discharged from [facility]. As per the hospital chart, she has history of attending mental health outpatient clinic at [facility]. Patient appeared disorganized and internally preoccupied throughout the interview. She remained irritable, agitated and noncooperative. She was internally preoccupied and appears to be responding to internal stimuli. As per the ED report, patient was found in a disorganized state at the [employer] in [facility]. She continued to have flight of ideas and loose associations. She remained a poor historian. She was superficially cooperative but guarded about the details. She remained guarded about auditory and visual hallucinations. She remained guarded about substances, however urine toxicology was positive for cocaine and drinking. She denied any suicidal or any homicidal ideation. Past medical history None reported - Diagnosis (1) Schizophrenia Current Visit: Yes Status: Chronic Priority: High (2) Cocaine abuse Current Visit: No Status: Acute - Final Diagnosis (DSM 5) Condition upon Discharge: STABLE DSM 5: Schizoaffective disorder bipolar type Cocaine abuse disorder severe Alcohol use disorder moderate Disposition: HOME/ ROUTINE Follow-up Treatment Plan: Schizoaffective disorder bipolar type Cocaine abuse disorder severe Alcohol use disorder moderate -CBT -Supportive therapy and group therapy and milieu therapy -Psychoeducation -Depakote as a mood stabilizer -Zyprexa for psychosis -Discontinue Klonopin for anxiety -Trazodone for insomnia Prescriptions/Medication Reconciliation: Benztropine [Cogentin] 1 mg PO BID #60 tab Divalproex [Depakote DR] 500 mg PO BID #60 tcp OLANZapine [Zyprexa] 10 mg PO BID #60 tab - Smoking Cessation Smoking Cessation Medication prescribed: No - Antipsychotic Medications Pt discharged on 2 or more routine antipsychotic medications: No
== END 2018-05-23 12:08 | disposition home or self-care (01) | DRG 430 ==
LOC: C.ER 03:41 → C.9E 10:51 → C.5E 11:21
PROVIDERS: ADMIT Psychiatry & Neurology Psychiatry; ATTEND Psychiatry & Neurology Psychiatry
PROC: GZ3ZZZZ Medication Management (ICD-10-PCS; principal; 2018-05-15)
PROC: GZHZZZZ Group Psychotherapy (ICD-10-PCS; 2018-05-15)
PROC: GZ56ZZZ Individual Psychotherapy, Supportive (ICD-10-PCS; 2018-05-15)
PROC: HZ56ZZZ Individual Psychotherapy for Substance Abuse Treatment, Psychoeducation (ICD-10-PCS; 2018-05-15)
DX: F25.0 Schizoaffective disorder, bipolar type (principal); F14.10 Cocaine abuse, uncomplicated; F10.10 Alcohol abuse, uncomplicated; F41.9 Anxiety disorder, unspecified; G47.00 Insomnia, unspecified; J45.909 Unspecified asthma, uncomplicated